=== PATIENT | female | born 1950 | race Two or more races ===

== ENCOUNTER → 2021-11-08 | Outpatient (REF) | payer MEDICARE, BC | LOC: M LAB REF 19:19 | PROVIDERS: ATTEND Nurse Practitioner Family | DX: L82.0 Inflamed seborrheic keratosis (principal) ==

== ENCOUNTER → 2022-06-05 | Outpatient (CLI) | payer MEDICARE, BC | LOC: M RAD 06:54 | PROVIDERS: ATTEND Internal Medicine Nephrology | DX: N18.31 Chronic kidney disease, stage 3a (principal); I70.1 Atherosclerosis of renal artery ==

== ENCOUNTER → 2022-11-10 | Outpatient (REF) | payer MEDICARE, BC | LOC: M SFHCDERM 17:21 | PROVIDERS: ATTEND Nurse Practitioner Family | DX: C44.319 Basal cell carcinoma of skin of other parts of face (principal) ==

== ENCOUNTER → 2023-01-09 | Outpatient (REF) | payer MEDICARE, BC | LOC: M SFHCDERM 14:14 | PROVIDERS: ATTEND Dermatology | DX: Z48.89 Encounter for other specified surgical aftercare (principal) ==

== ENCOUNTER → 2023-01-19 | Outpatient (CLI) | payer MEDICARE, BC | LOC: M LABSMTC 08:29 | PROVIDERS: ATTEND Anesthesiology | DX: Z11.52 Encounter for screening for COVID-19 (principal) ==

== ENCOUNTER 2023-01-24 09:44 | Day surgery (SDC) | payer MEDICARE, BC ==
[~2023-01-24] VITALS: Ht 160 cm; Wt 73.0 kg
[~2023-01-24 09:44] MED LIST: BSS IRRIG/VANCO(10MG)/TOBRA(5MG)/EPINEPH(1:1000-0.5CC)500ML BAG-ORONLY IR ONE; CYCLOPENTOLATE 1% OPHTH SOLN 2ML BTL OD SCH; LEVO75TA4; LIDOCAINE 1% SDV 5ML VIAL As Ordered ONE; LIDOCAINE 3.5 % 1ML OPHTH TOPICAL GEL OU ONE; MIDAZOLAM INJ 2MG/2ML VIAL As Ordered ONE; OFLOXACIN 0.3 % (OCUFLOX) OPTH SOL 5ML OD ONE; PHENYLEPHRINE 10% OPHTH SOL 5ML OD PRN; PHENYLEPHRINE 2.5% OPHTH SOL 2ML OD SCH; TRIA37.577; TROPICAMIDE 1% OPHTH SOLN 15ML OD SCH; fentaNYL 100 MCG/2 ML INJECTION As Ordered ONE
[2023-01-24 12:22] VITALS: BP 157/77
[2023-01-25] MEDS ORDERED: BSS IRRIG/VANCO(10MG)/TOBRA(5MG)/EPINEPH(1:1000-0.5CC)500ML BAG-ORONLY IR ONE (06:00)
[2023-01-25] MEDS ORDERED: PHENYLEPHRINE 2.5% OPHTH SOL 2ML OD SCH (06:00)
[2023-01-25] MEDS ORDERED: OFLOXACIN 0.3 % (OCUFLOX) OPTH SOL 5ML OD ONE (06:00)
[2023-01-25] MEDS ORDERED: CYCLOPENTOLATE 1% OPHTH SOLN 2ML BTL OD SCH (06:00)
[2023-01-25] MEDS ORDERED: PHENYLEPHRINE 10% OPHTH SOL 5ML OD PRN (06:00)
[2023-01-25] MEDS ORDERED: LIDOCAINE 3.5 % 1ML OPHTH TOPICAL GEL OU ONE (06:00)
[2023-01-25] MEDS ORDERED: TROPICAMIDE 1% OPHTH SOLN 15ML OD SCH (06:00)
== END 2023-01-24 12:52 | disposition home or self-care (01) ==
LOC: M SDC 09:44
PROVIDERS: ATTEND Ophthalmology
DX: H25.11 Age-related nuclear cataract, right eye (principal); H57.03 Miosis; H40.811 Glaucoma with increased episcleral venous pressure, right eye; E03.9 Hypothyroidism, unspecified; F17.210 Nicotine dependence, cigarettes, uncomplicated; Z90.710 Acquired absence of both cervix and uterus; Z88.0 Allergy status to penicillin; Z79.899 Other long term (current) drug therapy; Z79.890 Hormone replacement therapy
CPT/HCPCS: 66982; C1783; J2250; J3010; V2632